=== PATIENT | male | born 1990 | race Hispanic/Latino ===

== ENCOUNTER 2024-04-28 15:56 | Emergency (ER) | payer OTHER ==
[~2024-04-28] VITALS: Ht 160 cm; Wt 61.2 kg
[~2024-04-28 15:56] MED LIST: ERYT1OIN7 OP
[2024-04-28 16:36] LABS: HEMATOCRIT 42.5 % (42-54); MEAN CORPUSCULAR HEMOGLOBIN 30.1 pg (27.0-33.0); MEAN CORPUSCULAR HGB CONC 35.3 g/dL (32.0-36.0); MEAN CORPUSCULAR VOLUME 85.2 fL (79-99); RED BLOOD CELL COUNT(AUTO) 4.99 MIL/uL (4.50-6.20); RED CELL DISTRIBUTION WIDTH 12.4 % (11.0-15.5); WHITE BLOOD COUNT (AUTO) 13.7 K/uL (4.8-10.8)
[2024-04-28] MEDS: IBUPROFEN 600 MG TABLET PO ONE (16:46)
[2024-04-28 16:48] LABS: CREATININE 0.7 mg/dL (0.5-1.3); POTASSIUM 4.1 mmol/L (3.5-5.1)
[2024-04-28] MEDS ORDERED: IBUP-2077 PO (19:01)
[2024-04-28 19:23] VITALS: BP 111/74; PULSE 80; RESP 20; O2SAT 99
== END 2024-04-28 19:25 | disposition home or self-care (01) ==
LOC: EDH 15:56
DX: M94.0 Chondrocostal junction syndrome [Tietze] (principal); D72.829 Elevated white blood cell count, unspecified; E86.0 Dehydration; Z88.1 Allergy status to other antibiotic agents; Z98.890 Other specified postprocedural states
CPT/HCPCS: 36415; 71045; 80048; 84484; 85027; 93005